=== PATIENT | female | born 1950 | race Caucasian/White ===

== ENCOUNTER 2020-08-28 22:07 | Emergency (ER) | payer MEDICARE, BC ==
[~2020-08-28] VITALS: Ht 162.6 cm; Wt 61.7 kg
--- NOTE | 2020-08-28 22:10 | NUR ---
pt bibra c/o room spinning vertigo symptoms. Pt aaox4 breathing evenly and unlabored. Pt states " this feeling started at 6pm" per ems, symptoms are triggered from emotional distress. Pt had one episode of vomiting around 6pm. pt skin warm, dry, and intact. Pt attached to monitor and pox. Pt given blanket and call light within reach. Md at bedside will continue to monitor
[2020-08-28] MEDS ORDERED: LORAZEPAM INJ 2 MG/ML VIAL IV ONE (22:30)
[2020-08-28] MEDS ORDERED: IV NS 0.9% 500 ML BAG IV ONE (22:30)
[2020-08-28] MEDS ORDERED: ONDANSETRON HCL/PF 4 MG/2 ML VIAL IVP ONE (22:30)
[2020-08-28] MEDS ORDERED: ONDANSETRON HCL/PF 4 MG/2 ML VIAL ONE (22:33)
[2020-08-28] MEDS ORDERED: LORAZEPAM INJ 2 MG/ML VIAL ONE (22:33)
--- NOTE | 2020-08-28 22:48 | NUR ---
blood obtained and sent to lab
[2020-08-28] MEDS ORDERED: POLYVINYL ALCOHOL 15 ML BOTTLE ONE (22:52)
[2020-08-28 22:54] LABS: BASOPHILS # (AUTO) 0.1 /CMM (0.0-0.2); BASOPHILS % (AUTO) 0.9 % (0.0-2.0); EOSINOPHILS % (AUTO) 0.8 % (0.0-6.0); HEMATOCRIT 38 % (33-45); HEMOGLOBIN 12.7 g/dL (11.5-14.8); LYMPHOCYTES # (AUTO) 1.4 /CMM (0.8-4.8); LYMPHOCYTES % (AUTO) 11.9 % (20.0-44.0); MEAN CORPUSCULAR HGB CONC 33 g/dl (31.0-36.0); MEAN CORPUSCULAR VOLUME 93 fL (82-100); MONOCYTES # (AUTO) 0.5 /CMM (0.1-1.30); MONOCYTES % (AUTO) 4.4 % (2.0-12.0); NEUTROPHILS # (AUTO) 9.4 /CMM (1.8-8.9); PLATELET COUNT (AUTO) 241 /CMM (150-450); RED BLOOD CELL COUNT(AUTO) 4.12 MIL/uL (4.0-5.2); WHITE BLOOD COUNT (AUTO) 11.4 K/uL (4.3-11.0)
--- NOTE | 2020-08-28 22:54 | NUR ---
verbal order for artificial tears carried out
[2020-08-28 23:01] LABS: CALCIUM, SERUM 9.1 mg/dL (8.5-10.1); POTASSIUM 3.9 mmol/L (3.5-5.1)
--- NOTE | 2020-08-28 23:39 | NUR ---
Patient discharged to home in stable condition. Written and verbal after care instructions given. Patient verbalizes understanding of instruction.IV removed. Catheter intact and site benign. Pressure and 4x4 applied to site. No bleeding noted. Pt ambulatory with a steady gait. pt awaiting family to pick her up
[2020-08-29 00:21] VITALS: BP 135/65
== END 2020-08-28 23:39 | disposition home or self-care (01) ==
LOC: ER 22:11
DX: R42 Dizziness and giddiness (principal); F32.9 Major depressive disorder, single episode, unspecified; E03.9 Hypothyroidism, unspecified; G47.00 Insomnia, unspecified; Z88.6 Allergy status to analgesic agent; Z88.8 Allergy status to other drugs, medicaments and biological substances
CPT/HCPCS: 36415; 70450; 80048; 85025; 96374; 96375; 99284; J2060; J2405; J7040